=== PATIENT | female | born 1940 | race Caucasian/White ===

== ENCOUNTER 2022-01-08 18:18 | Emergency (ER) | payer MEDICARE ==
[2022-01-08] MEDS ORDERED: Acetaminophen 650 MG Suppository ONE (18:38)
[2022-01-08 18:52] LABS: Bilirubin Negative (Negative); Blood, Urine Large (Negative); Clarity Clear (Clear); Glucose, Urine (Dipstick) >=1000 mg/dL (Negative); Ketone, Urine Negative (Negative); Leukocyte Negative (Negative); Nitrite Negative (Negative); Protein, Urine (Dipstick) 100 mg/dL (Neg-Trace); RBC/HPF 0-3 HPF (0-3); pH, Urine 5.5 (5.0-9.0)
[2022-01-08 18:53] LABS: Bacteria/HPF 1+ HPF (None Seen); Mucous/LPF 1+ LPF (<2+); Red Blood Cell Cast 0-3 LPF (None Seen); Squamous Epithelial 0-3 HPF (0-3)
[2022-01-08] MEDS ORDERED: KETAMINE 100 MG/ML (5ML VIAL) ONE (18:55)
[2022-01-08 18:57] LABS: ALT (SGPT) 156 U/L (8-55); AST (SGOT) 120 U/L (5-34); Albumin 2.4 g/dL (3.4-4.8); Alkaline Phosphatase 58 U/L (40-110); Anion Gap 13 mmol/L (10-20); BUN (Urea Nitrogen) 38 mg/dL (9.8-20.1); Bilirubin, Total 0.9 mg/dL (0.2-1.2); Calc. Creatinine Clearance 0 mL/min (70-130); Calcium 7.6 mg/dL (7.8-10.44); Carbon Dioxide 22 mmol/L (23-31); Chloride 106 mmol/L (98-107); Globulin 2.9 g/dL (2.4-3.5); Glucose 314 mg/dL (83-110); Potassium 5.2 mmol/L (3.5-5.1); Protein, Total 5.3 g/dL (5.8-8.1); Sodium 136 mmol/L (136-145)
[2022-01-08 19:00] LABS: White Blood Cell (WBC) Count 22.5 thou/uL (4.8-10.8)
[2022-01-08 19:01] LABS: Band 5 % (5-11); Eosinophils 1 % (0-10); Hemoglobin 14.1 g/dL (12.0-16.0); MDiff Complete? YES; Manual Diff?? YES; Mean Corpuscular HGB CONC 32.6 g/dL (32.0-36.0); Mean Corpuscular Hemoglobin 31.9 pg (27.0-31.0); Mean Corpuscular Volume 97.8 fL (78.0-98.0); Mean Platelet Volume 9.8 fL (7.4-10.4); Monocytes 4 % (0-10); Neutrophil 86 % (42-75); Platelet Count 280 thou/uL (130-400); RBC Distribution Width 12.4 % (11.5-14.5); Red Blood Cell (RBC) Count 4.44 mill/uL (4.20-5.40)
[2022-01-08 19:02] LABS: Lymphocytes 4 % (21-51); Platelet Morphology Comment Appears Adequate; RBC Morphology Normal
[2022-01-08] MEDS ORDERED: Midazolam HCl 5 mg/ml Vial ONE (19:36)
[2022-01-08] MEDS ORDERED: Sodium Chloride 0.9% 3,000 ML ONE (20:13)
[2022-01-08] MEDS ORDERED: Fentanyl 100 MCG/2 ML VIAL ONE (20:38)
[2022-01-08 21:08] LABS: Lactic Acid 1.5 mmol/L (0.5-2.2)
== END 2022-01-08 22:20 | disposition short-term general hospital (02) ==
LOC: NAV ERS 18:18
DX: A41.89 Other specified sepsis (principal); U07.1 COVID-19; J12.82 Pneumonia due to coronavirus disease 2019; J96.90 Respiratory failure, unspecified, unspecified whether with hypoxia or hypercapnia; R65.21 Severe sepsis with septic shock; J93.83 Other pneumothorax; J12.81 Pneumonia due to SARS-associated coronavirus; I48.91 Unspecified atrial fibrillation; Z79.01 Long term (current) use of anticoagulants; Z79.82 Long term (current) use of aspirin; Z79.899 Other long term (current) drug therapy
CPT/HCPCS: 31500; 32551; 36556; 71045; 80053; 81003; 81015; 82553; 83605; 83880; 84484; 85025; 87040; 87086; 93005; 94760; 96365; 96366; 96368; 96375; 96376; 99292; J1956; J2250; J3010; J7050; J7620